=== PATIENT | male | born 1935 | race Caucasian/White ===

== ENCOUNTER 2017-06-28 11:02 | Day surgery (SDC) | payer OTHER, MEDICARE ==
[~2017-06-28] VITALS: Ht 182.9 cm; Wt 83.9 kg
[~2017-06-28 11:02] MED LIST: ALDACTONE25 MG PO; ASCORBIC ACID500 M3 PO; COZAAR100 MG PO; ENDOCET 5-3251 EACH PO; HYDROCHLOROTHIA25 MG PO; LO-DOSE ASPIRIN81 M1 PO; LOPRESSOR25 MG PO; METAMUCIL POWD798 GM PO; MICROZIDE12.5 M1 PO; NORVASC10 MG PO; PAXIL10 MG PO; PRAVACHOL80 MG PO; ULTRAM50 MG PO
[2017-06-28] MEDS ORDERED: ACID CONTROL150 MG PO (13:06)
[2017-06-28] MEDS ORDERED: VITAMIN B122500 MCG PO (13:06)
[2017-06-28] MEDS ORDERED: AMLODIPINE BESY10 MG PO (13:07)
[2017-06-28] MEDS ORDERED: POTASSIUM CHLO10 ME3 PO (13:08)
[2017-06-29 10:24] LABS: TYPE OF FLUID PERICARDIAL
[2017-06-29 10:50] LABS: APPEARANCE SL. HAZY-YELLOW; BODY FLUID RBC'S 1000 /MM^3 (0-100); BODY FLUID WBC'S 266 /MM^3 (0-500)
[2017-06-29 10:58] LABS: BODY FLUID GLUCOSE 95 MG/DL; BODY FLUID LDH 127 IU/L; BODY FLUID PROTEIN 5.4 G/DL
[2017-06-29 11:40] LABS: BODY FLUID EOSINOPHILS 0 % (0-25); MONONUCLEAR WBC'S 96 %; POLYNUCLEAR WBC'S 4 % (0-25)
== END 2017-06-28 16:00 | disposition home or self-care (01) ==
LOC: CATH 11:02
PROVIDERS: Internal Medicine Cardiovascular Disease
DX: I31.3 Pericardial effusion (noninflammatory) (principal); I10 Essential (primary) hypertension; E78.00 Pure hypercholesterolemia, unspecified; J45.909 Unspecified asthma, uncomplicated; Z85.46 Personal history of malignant neoplasm of prostate; Z85.828 Personal history of other malignant neoplasm of skin; I25.10 Atherosclerotic heart disease of native coronary artery without angina pectoris; Z95.5 Presence of coronary angioplasty implant and graft; F32.9 Major depressive disorder, single episode, unspecified; Z82.3 Family history of stroke
CPT/HCPCS: 82040; 82945; 83615 91; 84157; 87070; 87102; 87205; 88108; 89051; 93306; C1894; J2250; J3010